=== PATIENT | female | born 1990 | race American Indian/Alaskan Native ===

== ENCOUNTER 2020-07-11 16:16 | Inpatient (IN) | payer MEDICAID ==
--- NOTE | 2020-07-11 16:36 | History and Physical Report ---
History of Present Illness Date of examination: 07/11/20 Chief complaint: Induction of Labor History of present illness: 30-year-old G1 at 38+4/7 weeks by LMP with VJ 07/21/2020 presents for induction of labor for gestational diabetes and morbid obesity as well as IUGR. care with [facility] ORDER ENTRY REPRESENTATIVE OB problem list GDM GBS positive IUGR Morbid obesity Maternal adnexal mass-ultrasound 04/24/2020 shows a simple left ovarian cyst Posterior placenta Transfer of care at 33 weeks OB labs: O+ Hemoglobin 11.1 Rubella immune Hepatitis B negative HIV negative Platelets 3 6 Cystic fibrosis carrier negative MSAFP markers negative GBS positive Past History Past Medical History: other (IUGR, maternal obesity. Gestational diabetes) Past Surgical History: other (hernia repair) - Obstetrical History Expected Date of Delivery: 07/21/20 Actual Gestation: 38 Week(s) 4 Day(s) : 1 Medications and Allergies Allergies Allergy/AdvReac Type Severity Reaction Status Date / Time No Known Allergies Allergy Verified 07/11/20 16:54 Home Medications Medication Instructions Recorded Confirmed Last Taken Type Vitamin 2 tab PO DAILY 07/11/20 07/11/20 07/11/20 History Review of Systems All systems: negative (no OB complaints) - Physical Exam Breasts: Positive: deferred Cardiovascular: Regular rate Lungs: Positive: Clear to auscultation Abdomen: Positive: normal appearance, normal bowel sounds Genitourinary (Female): Positive: normal external genitalia, normal perenium Vagina: Positive: normal moisture Anus/Rectum: Positive: normal perianal skin Extremities: Positive: normal Deep Tendon Reflex Grade: Normal +2 - Obstetrical FHR: category 1 Results All other labs normal. Assessment and Plan admission CFM GDMA1: clear liquids with Accucheck Q4 hours until patient is in active labor the Q2 hours with SSI ordered Cervidil GBS coverage at 4cm epidural/pain medication PRN Maternal/ well being reassuring overall. Ashu Grubbs MD
[2020-07-11] MEDS ORDERED: BUTORPHANOL 2 MG/1 ML INJ IV PRN (16:56)
[2020-07-11] MEDS ORDERED: fentaNYL 100 MCG/2 ML INJ IV PRN (16:56)
[2020-07-11] MEDS ORDERED: TERBUTALINE 1 MG/1 ML INJ SUB-Q PRN (16:56)
[2020-07-11] MEDS ORDERED: DINOPROSTONE 10 MG VAG SUPP VG SCH (16:56)
[2020-07-11] MEDS ORDERED: MINERAL OIL 30 ML ORAL LIQD PO PRN (16:56)
[2020-07-11] MEDS ORDERED: ePHEDrine SULFATE 50 MG/1 ML INJ IV PRN (16:56)
[2020-07-11] MEDS ORDERED: ACETAMINOPHEN 325 MG TAB PO PRN (16:56)
[2020-07-11] MEDS ORDERED: PROMETHAZINE 25 MG TAB PO PRN (16:56)
[2020-07-11] MEDS ORDERED: LIDOCAINE (2%) 20 MG/1 ML VIAL 20 ML MDV INFILTRATI ONE (16:56)
[2020-07-11] MEDS ORDERED: OXYTOCIN DRIP 30 UNITS/500 ML BAG IV SCH (17:00)
[2020-07-11] MEDS ORDERED: AMPICILLIN/NS 2 GM/100 ML 2 GM/100 ML BAG IV ONE (17:56)
[2020-07-11] MEDS ORDERED: INSULIN REGULAR, HUMAN 100 UNITS/1 ML SUB-Q SCH (18:00)
[2020-07-11 18:40] LABS: Hematocrit 33.6 % (30.3-42.9); Hemoglobin 11.4 gm/dl (10.1-14.3); Mean Corpuscular HGB Conc 34 % (30-34); Mean Corpuscular Volume 83 fl (79-97); Platelet Count 332 K/mm3 (140-440); Red Blood Count 4.03 M/mm3 (3.65-5.03); Red Cell Distribution Width 15.7 % (13.2-15.2)
[2020-07-11] MEDS: LACTATED RINGERS 1,000 ML IV SCH ×2 (18:59→19:50)
[2020-07-11] MEDS: AMPICILLIN/NS 1 GM/50 ML 1 GM/50 ML BAG IV SCH (23:21)
[2020-07-12] MEDS: LACTATED RINGERS 1,000 ML IV SCH ×2 (08:20→18:02)
--- NOTE | 2020-07-12 09:36 | Progress Note ---
Assessment and Plan - Patient Problems (1) Encounter for induction of labor Current Visit: Yes Status: Acute Plan to address problem: cervical ripening unsuccessful overnight -cervix 0.5/25/-3 -options for induction reviewed -Cooks catheter placed without difficulty after obtaining informed consent -catheter inflated to 60cc uterine/80cc vaginal, scant blood after placement -will add low dose pitocin Anticipate vaginal delivery, in setting of Cat II tracing overnight-R/B/A/I for delivery and blood transfusion reviewed. Subjective - Subjective Interval history: No complaints. Patient reports: new complaints, movement normal, no loss of fluid, no vaginal bleeding Objective - Vital Signs Vital Signs: Vital Signs - 12hr 07/11/20 07/11/20 07/11/20 21:37 21:42 21:43 Temperature Pulse Rate 105 H 104 H 114 H Blood Pressure O2 Sat by Pulse 99 99 76 L Oximetry 07/11/20 07/11/20 07/11/20 21:47 21:52 21:57 Temperature Pulse Rate 103 H 127 H 103 H Blood Pressure O2 Sat by Pulse 100 100 100 Oximetry 07/11/20 07/11/20 07/11/20 22:02 22:07 22:12 Temperature Pulse Rate 106 H 108 H 103 H Blood Pressure O2 Sat by Pulse 100 100 99 Oximetry 07/11/20 07/11/20 07/11/20 22:17 22:22 22:27 Temperature Pulse Rate 86 92 H 95 H Blood Pressure O2 Sat by Pulse 97 98 98 Oximetry 07/11/20 07/11/20 07/11/20 22:32 22:37 22:42 Temperature Pulse Rate 105 H 107 H 106 H Blood Pressure O2 Sat by Pulse 98 97 96 Oximetry 07/11/20 07/11/20 07/11/20 23:09 23:10 23:18 Temperature 98.6 F Pulse Rate 155 H Blood Pressure O2 Sat by Pulse 98 84 Oximetry 07/11/20 07/11/20 07/11/20 23:19 23:24 23:30 Temperature Pulse Rate 105 H 109 H 99 H Blood Pressure O2 Sat by Pulse 97 97 97 Oximetry 07/11/20 07/11/20 07/11/20 23:35 23:41 23:46 Temperature Pulse Rate 109 H 112 H 110 H Blood Pressure O2 Sat by Pulse 97 80 L 98 Oximetry 07/11/20 07/11/2007/12/21 23:51 23:56 00:01 Temperature Pulse Rate 102 H 106 H 92 H Blood Pressure O2 Sat by Pulse 96 97 99 Oximetry 07/12/20 07/12/20 07/12/20 00:06 00:11 00:16 Temperature Pulse Rate 99 H 101 H 95 H Blood Pressure O2 Sat by Pulse 97 97 96 Oximetry 07/12/20 07/12/20 07/12/20 00:21 00:29 00:34 Temperature Pulse Rate 125 H 104 H 102 H Blood Pressure O2 Sat by Pulse 84 98 98 Oximetry 07/12/20 07/12/20 07/12/20 00:39 00:44 00:49 Temperature Pulse Rate 89 96 H 96 H Blood Pressure O2 Sat by Pulse 97 97 96 Oximetry 07/12/20 07/12/20 07/12/20 00:54 00:59 01:03 Temperature Pulse Rate 92 H 98 H 93 H Blood Pressure 135/84 O2 Sat by Pulse 98 98 Oximetry 07/12/20 07/12/20 07/12/20 01:04 01:09 01:14 Temperature Pulse Rate 102 H 109 H 91 H Blood Pressure O2 Sat by Pulse 97 96 96 Oximetry 07/12/20 07/12/20 07/12/20 01:19 01:24 01:25 Temperature Pulse Rate 94 H 101 H 50 L Blood Pressure O2 Sat by Pulse 97 97 88 Oximetry 07/12/20 07/12/20 07/12/20 01:31 01:36 01:38 Temperature Pulse Rate 111 H 96 H 104 H Blood Pressure O2 Sat by Pulse 98 98 79 L Oximetry 07/12/20 07/12/20 07/12/20 01:41 01:46 01:51 Temperature Pulse Rate 93 H 87 92 H Blood Pressure O2 Sat by Pulse 98 98 87 Oximetry 07/12/20 07/12/20 07/12/20 02:42 02:47 02:52 Temperature Pulse Rate 110 H 121 H 92 H Blood Pressure O2 Sat by Pulse 98 97 98 Oximetry 07/12/20 07/12/20 07/12/20 02:57 03:02 03:08 Temperature Pulse Rate 110 H 93 H 90 Blood Pressure O2 Sat by Pulse 97 97 97 Oximetry 07/12/20 07/12/20 07/12/20 03:10 03:12 03:17 Temperature 99.0 F Pulse Rate 91 H 94 H Blood Pressure O2 Sat by Pulse 97 96 Oximetry 07/12/20 07/12/20 07/12/20 03:22 03:27 03:32 Temperature Pulse Rate 97 H 100 H 93 H Blood Pressure O2 Sat by Pulse 96 96 96 Oximetry 07/12/20 07/12/20 07/12/20 03:37 03:43 03:47 Temperature Pulse Rate 94 H 89 95 H Blood Pressure O2 Sat by Pulse 97 97 95 Oximetry 07/12/20 07/12/20 07/12/20 03:53 03:58 04:02 Temperature Pulse Rate 90 98 H 102 H Blood Pressure O2 Sat by Pulse 97 94 96 Oximetry 07/12/20 07/12/20 07/12/20 04:08 04:13 04:18 Temperature Pulse Rate 87 101 H 91 H Blood Pressure O2 Sat by Pulse 97 96 98 Oximetry 07/12/20 07/12/20 07/12/20 04:22 04:28 04:34 Temperature Pulse Rate 85 141 H 92 H Blood Pressure O2 Sat by Pulse 98 97 98 Oximetry 07/12/20 07/12/20 07/12/20 04:39 04:44 04:49 Temperature Pulse Rate 95 H 84 76 Blood Pressure O2 Sat by Pulse 97 95 96 Oximetry 07/12/20 07/12/20 07/12/20 04:53 04:59 05:04 Temperature Pulse Rate 83 83 89 Blood Pressure O2 Sat by Pulse 96 97 96 Oximetry 07/12/20 07/12/20 07/12/20 05:09 05:14 05:19 Temperature Pulse Rate 86 79 80 Blood Pressure O2 Sat by Pulse 97 97 97 Oximetry 07/12/20 07/12/20 07/12/20 05:24 05:29 05:34 Temperature Pulse Rate 86 88 93 H Blood Pressure O2 Sat by Pulse 96 96 96 Oximetry 07/12/20 07/12/20 07/12/20 05:39 05:44 05:48 Temperature Pulse Rate 86 79 78 Blood Pressure O2 Sat by Pulse 96 97 87 Oximetry 07/12/20 07/12/20 07/12/20 05:49 05:54 05:59 Temperature Pulse Rate 79 80 86 Blood Pressure O2 Sat by Pulse 98 99 95 Oximetry 07/12/20 07/12/20 07/12/20 06:04 06:09 06:14 Temperature Pulse Rate 95 H 85 80 Blood Pressure O2 Sat by Pulse 99 97 97 Oximetry 07/12/20 07/12/20 07/12/20 06:19 06:24 06:29 Temperature Pulse Rate 87 98 H 101 H Blood Pressure O2 Sat by Pulse 97 97 97 Oximetry 07/12/20 07/12/20 07/12/20 06:39 06:44 06:49 Temperature Pulse Rate 101 H 86 86 Blood Pressure O2 Sat by Pulse 98 98 96 Oximetry 07/12/20 07/12/20 07/12/20 06:54 06:59 07:04 Temperature Pulse Rate 84 78 77 Blood Pressure O2 Sat by Pulse 97 97 96 Oximetry 07/12/20 07/12/20 07/12/20 07:09 07:14 07:19 Temperature Pulse Rate 86 80 88 Blood Pressure O2 Sat by Pulse 98 97 98 Oximetry 07/12/20 07/12/20 07/12/20 07:24 07:29 07:34 Temperature Pulse Rate 79 86 96 H Blood Pressure O2 Sat by Pulse 97 96 95 Oximetry 07/12/20 07/12/20 07/12/20 07:39 07:57 08:03 Temperature Pulse Rate 81 91 H 133 H Blood Pressure O2 Sat by Pulse 97 97 97 Oximetry 07/12/20 07/12/20 07/12/20 08:08 08:13 08:17 Temperature Pulse Rate 102 H 95 H 91 H Blood Pressure O2 Sat by Pulse 98 97 97 Oximetry 07/12/20 07/12/20 07/12/20 08:23 08:28 08:37 Temperature 98.0 F Pulse Rate 91 H 117 H Blood Pressure O2 Sat by Pulse 98 98 Oximetry 07/12/20 07/12/20 07/12/20 08:47 08:52 08:57 Temperature Pulse Rate 61 98 H 105 H Blood Pressure O2 Sat by Pulse 96 98 98 Oximetry 07/12/20 07/12/20 07/12/20 09:02 09:07 09:12 Temperature Pulse Rate 93 H 93 H 98 H Blood Pressure O2 Sat by Pulse 98 99 97 Oximetry 07/12/20 07/12/20 07/12/20 09:17 09:21 09:22 Temperature Pulse Rate 103 H 83 83 Blood Pressure O2 Sat by Pulse 98 83 L 83 L Oximetry 07/12/20 09:27 Temperature Pulse Rate 86 Blood Pressure O2 Sat by Pulse 98 Oximetry - Exam Cardiovascular: Regular rate Abdomen: Present: normal appearance, other (morbidly obese) Uterus: Present: normal FHR: category 1 Uterine Contraction Monitor Mode: External Uterine Contraction Pattern: Absent - Labs Labs: Abnormal Labs 07/11/20 07/11/20 07/12/20 18:00 18:22 04:10 RDW 15.7 H POC Glucose 160 H 116 H Laboratory Results - last 24 hr 07/11/20 07/11/20 07/11/20 18:00 18:00 18:22 WBC 9.7 RBC 4.03 Hgb 11.4 Hct 33.6 MCV 83 MCH 28 MCHC 34 RDW 15.7 H Plt Count 332 POC Glucose 160 H Blood Type O POSITIVE Antibody Screen Negative 07/12/20 04:10 WBC RBC Hgb Hct MCV MCH MCHC RDW Plt Count POC Glucose 116 H Blood Type Antibody Screen
[2020-07-12] MEDS: BUTORPHANOL 2 MG/1 ML INJ IV PRN ×2 (11:54→20:32)
[2020-07-12] MEDS: OXYTOCIN DRIP 30 UNITS/500 ML BAG IV SCH ×2 (11:56→15:05)
[2020-07-13] MEDS: AMPICILLIN/NS 1 GM/50 ML 1 GM/50 ML BAG IV SCH ×2 (02:52→06:08)
[2020-07-13] MEDS ORDERED: BICITRA ORAL LIQD 30ML ONE (08:33)
[2020-07-13] MEDS ORDERED: METOCLOPRAMIDE 10 MG/2 ML INJ ONE (08:34)
[2020-07-13] MEDS ORDERED: FAMOTIDINE 20 MG/2 ML INJ IV ONE (08:34)
[2020-07-13] MEDS ORDERED: ceFAZolin/Water 2 GM/20 ML 2 GM/20 ML SYRINGE IV ONE (08:34)
[2020-07-13] MEDS: LACTATED RINGERS 1,000 ML IV SCH (09:46)
[2020-07-13] MEDS ORDERED: ePHEDrine SULFATE 50 MG/1 ML INJ IV PRN (09:58)
[2020-07-13] MEDS ORDERED: NALOXONE 2 MG/2 ML INJ IV PRN (09:58)
[2020-07-13] MEDS ORDERED: fentaNYL-BUPIV 2 MCG/ML-0.125% 200 MCG/100 ML BAG EPIDURAL SCH (10:00)
--- NOTE | 2020-07-13 10:00 | Anesthesia Day of Surgery ---
Anesthesia Day of Surgery - Day of Surgery Patient Examined: Yes Patient H&P Reviewed: Yes Patient is NPO: Yes Beta Blockers: No Cardiac Clearance: No Pulmonary Clearance: No Darrian's Test: N/A
--- NOTE | 2020-07-13 10:00 | Anesthesia Consultation ---
Anesthesia Consult and Med Hx Date of service: 07/13/20 - Airway Anesthetic Teeth Evaluation: Poor ROM Head & Neck: Adequate Mental/Hyoid Distance: Adequate Mallampati Class: Class III Intubation Access Assessment: Possibly Difficult - Pulmonary Exam CTA: Yes - Cardiac Exam Cardiac Exam: RRR - Pre-Operative Health Status ASA Pre-Surgery Classification: ASA3 Proposed Anesthetic Plan: Epidural - Pulmonary Hx Smoking: No Hx Asthma: No Hx Respiratory Symptoms: No SOB: No COPD: No Home Oxygen Therapy: No Hx Pneumonia: No Hx Sleep Apnea: No - Cardiovascular System Hx Hypertension: No Hx Coronary Artery Disease: No Hx Heart Attack/AMI: No Hx Angina: No Hx Percutaneous Transluminal Coronary Angioplasty (PTCA): No Hx Cardia Arrhythmia: No Hx Pacemaker: No Hx Internal Defibrillator: No Hx Valvular Heart Disease: No Hx Heart Murmur: No Hx Peripheral Vascular Disease: No - Central Nervous System Hx Neuromuscular Disorder: No Hx Seizures: No CVA: No Hx Back Pain: No Hx Psychiatric Problems: No - Gastrointestinal Hx Ulcer: No Hx Gastroesophageal Reflux Disease: Yes - Endocrine Hx Renal Disease: No Hx End Stage Renal Disease: No Hx Cirrhosis: No Hx Liver Disease: No Hx Insulin Dependent Diabetes: No Hx Non-Insulin Dependent Diabetes: Yes Hx Thyroid Disease: No Hx Hypothyroidism: No Hx Hyperthyroidism: No - Hematic Hx Anemia: No Hx Sickle Cell Disease: No - Other Systems Hx Alcohol Use: No Hx Substance Use: No Hx Cancer: No Hx Obesity: Yes
[2020-07-13] MEDS ORDERED: CARBOPROST TROMETHAMINE 250 MCG/1 ML INJ IM ONE (12:57)
[2020-07-13] MEDS ORDERED: METHYLERGONOVINE MALEATE 0.2 MG/ML VIAL IM ONE (12:58)
[2020-07-13] MEDS ORDERED: WITCH HAZEL/ GLYCERIN PAD TP PRN (13:08)
[2020-07-13] MEDS ORDERED: LANOLIN/ZINC/DIMETHICONE (LANSINOH) 7 GM TP PRN (13:08)
[2020-07-13] MEDS ORDERED: NALOXONE 0.4 MG/1 ML INJ IV PRN ×2 (13:08→16:08)
--- NOTE | 2020-07-13 13:08 | Progress Note ---
Assessment and Plan - Patient Problems (1) Intrauterine growth restriction affecting care of mother Current Visit: Yes Status: Acute Plan to address problem: Take patient back for a primary delivery Risk and benefits have been explained to the patient (2) Morbid obesity with BMI of 60.0-69.9, adult Current Visit: Yes Status: Acute Subjective - Subjective Date of service: 07/13/20 Interval history: 30y/o @ 38+6 weeks admitted for induction for morbid obesity and IUGR. Int rapartum course has been complicated by nonreassuring heart rate tracing. The patient is a cervical exam remains at 4 cm. We will proceed with a primary delivery. Patient reports: new complaints, movement normal, no loss of fluid, no vaginal bleeding Objective - Vital Signs Vital Signs: Vital Signs - 12hr 07/13/20 07/13/20 07/13/20 01:10 01:15 01:20 Temperature Pulse Rate 70 71 77 Respiratory Rate Blood Pressure O2 Sat by Pulse 95 95 94 Oximetry 07/13/20 07/13/20 07/13/20 01:25 01:30 01:35 Temperature Pulse Rate 79 76 92 H Respiratory Rate Blood Pressure O2 Sat by Pulse 96 95 97 Oximetry 07/13/20 07/13/20 07/13/20 01:43 01:48 01:53 Temperature Pulse Rate 73 71 66 Respiratory Rate Blood Pressure O2 Sat by Pulse 96 96 91 Oximetry 07/13/20 07/13/20 07/13/20 01:58 02:03 02:08 Temperature Pulse Rate 75 71 81 Respiratory Rate Blood Pressure O2 Sat by Pulse 96 97 98 Oximetry 07/13/20 07/13/20 07/13/20 02:12 02:13 02:18 Temperature Pulse Rate 72 71 74 Respiratory Rate Blood Pressure 120/57 O2 Sat by Pulse 97 96 Oximetry 07/13/20 07/13/20 07/13/20 02:23 02:26 02:28 Temperature Pulse Rate 78 82 84 Respiratory Rate Blood Pressure O2 Sat by Pulse 95 89 99 Oximetry 07/13/20 07/13/20 07/13/20 02:33 03:28 05:08 Temperature Pulse Rate 75 71 Respiratory 18 Rate Blood Pressure O2 Sat by Pulse 99 97 Oximetry 07/13/20 07/13/20 07/13/20 05:13 05:18 05:23 Temperature Pulse Rate 80 77 71 Respiratory Rate Blood Pressure O2 Sat by Pulse 96 98 97 Oximetry 07/13/20 07/13/20 07/13/20 05:28 05:33 05:38 Temperature Pulse Rate 71 72 66 Respiratory Rate Blood Pressure O2 Sat by Pulse 97 97 97 Oximetry 07/13/20 07/13/20 07/13/20 05:43 05:48 05:53 Temperature Pulse Rate 71 79 71 Respiratory Rate Blood Pressure O2 Sat by Pulse 97 96 97 Oximetry 07/13/20 07/13/20 07/13/20 05:56 05:58 08:48 Temperature 97.9 F Pulse Rate 72 74 Respiratory Rate Blood Pressure O2 Sat by Pulse 96 99 Oximetry 07/13/20 07/13/20 07/13/20 08:53 08:58 09:40 Temperature Pulse Rate 71 69 87 Respiratory Rate Blood Pressure 130/73 O2 Sat by Pulse 100 100 Oximetry 07/13/20 07/13/20 07/13/20 09:42 09:44 09:45 Temperature Pulse Rate 81 98 H 110 H Respiratory Rate Blood Pressure 128/72 129/58 O2 Sat by Pulse 95 Oximetry 07/13/20 07/13/20 07/13/20 09:47 09:49 09:51 Temperature Pulse Rate 107 H 129 H 111 H Respiratory Rate Blood Pressure 128/58 129/65 127/66 O2 Sat by Pulse 95 Oximetry 07/13/20 07/13/20 07/13/20 09:52 09:53 09:55 Temperature Pulse Rate 113 H 116 H 122 H Respiratory Rate Blood Pressure 123/70 126/73 O2 Sat by Pulse 94 Oximetry 07/13/20 07/13/20 07/13/20 09:57 10:02 10:07 Temperature Pulse Rate 119 H 117 H 108 H Respiratory Rate Blood Pressure O2 Sat by Pulse 94 93 94 Oximetry 07/13/20 07/13/20 07/13/20 10:10 10:12 10:17 Temperature Pulse Rate 122 H 105 H 92 H Respiratory Rate Blood Pressure 125/78 O2 Sat by Pulse 95 95 Oximetry 07/13/20 07/13/20 07/13/20 10:22 10:27 10:32 Temperature Pulse Rate 108 H 80 102 H Respiratory Rate Blood Pressure 130/81 O2 Sat by Pulse 94 95 95 Oximetry 07/13/20 07/13/20 07/13/20 10:37 10:41 10:42 Temperature Pulse Rate 84 83 82 Respiratory Rate Blood Pressure 131/73 O2 Sat by Pulse 95 94 Oximetry 07/13/20 07/13/20 07/13/20 10:47 10:52 10:55 Temperature Pulse Rate 89 91 H 94 H Respiratory Rate Blood Pressure 125/68 O2 Sat by Pulse 95 95 Oximetry 07/13/20 07/13/20 07/13/20 10:57 11:02 11:07 Temperature Pulse Rate 88 92 H 101 H Respiratory Rate Blood Pressure O2 Sat by Pulse 96 95 98 Oximetry 07/13/20 07/13/20 07/13/20 11:10 11:12 11:17 Temperature Pulse Rate 76 72 94 H Respiratory Rate Blood Pressure 125/68 O2 Sat by Pulse 94 97 Oximetry 07/13/20 07/13/20 07/13/20 11:22 11:26 11:27 Temperature Pulse Rate 78 83 83 Respiratory Rate Blood Pressure 114/57 O2 Sat by Pulse 97 93 Oximetry 07/13/20 07/13/20 07/13/20 11:32 11:37 11:41 Temperature Pulse Rate 81 88 75 Respiratory Rate Blood Pressure 133/68 O2 Sat by Pulse 94 98 Oximetry 07/13/20 07/13/20 07/13/20 11:42 11:47 11:52 Temperature Pulse Rate 75 79 71 Respiratory Rate Blood Pressure O2 Sat by Pulse 96 94 92 Oximetry 07/13/20 07/13/20 07/13/20 11:56 11:57 12:02 Temperature Pulse Rate 86 79 71 Respiratory Rate Blood Pressure 137/64 O2 Sat by Pulse 97 93 Oximetry 07/13/20 07/13/20 07/13/20 12:07 12:11 12:12 Temperature Pulse Rate 79 78 78 Respiratory Rate Blood Pressure 132/76 O2 Sat by Pulse 93 94 Oximetry 07/13/20 07/13/20 07/13/20 12:17 12:21 12:22 Temperature Pulse Rate 75 78 82 Respiratory Rate Blood Pressure O2 Sat by Pulse 95 89 93 Oximetry 07/13/20 07/13/20 07/13/20 12:25 12:27 12:32 Temperature Pulse Rate 81 75 77 Respiratory Rate Blood Pressure 126/74 O2 Sat by Pulse 93 95 Oximetry 07/13/20 07/13/20 07/13/20 12:37 12:40 12:42 Temperature Pulse Rate 79 82 72 Respiratory Rate Blood Pressure 126/71 O2 Sat by Pulse 95 94 Oximetry 07/13/20 07/13/20 07/13/20 12:47 12:52 12:55 Temperature Pulse Rate 74 83 79 Respiratory Rate Blood Pressure 124/73 O2 Sat by Pulse 93 95 Oximetry 07/13/20 12:57 Temperature Pulse Rate 79 Respiratory Rate Blood Pressure O2 Sat by Pulse 95 Oximetry - Labs Labs: Abnormal Labs 07/11/20 07/11/20 07/12/20 18:00 18:22 04:10 RDW 15.7 H POC Glucose 160 H 116 H 07/13/20 06:27 RDW POC Glucose 106 H Laboratory Results - last 24 hr 07/12/20 07/13/20 07/13/20 23:17 03:24 06:27 POC Glucose 90 97 106 H
[2020-07-13] MEDS ORDERED: IBUPROFEN 600 MG TAB PO PRN (13:09)
[2020-07-13] MEDS ORDERED: KETOROLAC 30 MG/1 ML INJ IV PRN (13:09)
[2020-07-13] MEDS ORDERED: MORPHINE 4 MG/1 ML INJ IV PRN (13:09)
[2020-07-13] MEDS ORDERED: ONDANSETRON 4 MG/2 ML INJ ONE ×2 (13:12→14:00)
--- NOTE | 2020-07-13 13:13 | Procedure Note ---
OB Delivery Note - Delivery Date of Delivery: 07/13/20 Surgeon: HARRIS FAJARDO Estimated blood loss: other (700ml) - Section Preop diagnosis: nonreassuring FHR tracing Postop diagnosis: same section procedure: section, primary low transverse Disposition: PACU Complications: none - A at 1 minute: 8 at 5 minutes: 9 Infant Gender: Male (Weight 6 pounds 8 ounces)
[2020-07-13] MEDS ORDERED: SODIUM BICARB 8.4% 50 MEQ/50 ML VIAL IV ONE (13:35)
[2020-07-13] MEDS ORDERED: LIDOCAINE 2%/EPINEPHRINE 1:200,000 VIAL (20 ML) INFILTRATI ONE (13:37)
[2020-07-13] MEDS ORDERED: SODIUM CHLORIDE 0.9% IRR 1,500 ML BOTTLE IR ONE (13:40)
[2020-07-13] MEDS ORDERED: WATER FOR IRRIG STERILE 1,500 ML BOTTLE IR ONE (13:40)
[2020-07-13] MEDS ORDERED: ceFAZolin 1 GM VIAL ONE (13:43)
[2020-07-13] MEDS ORDERED: PHENYLEPHRINE/NS 1,000 MCG/10 ML SYRINGE (OR USE) IV ONE (13:56)
[2020-07-13] MEDS ORDERED: D5W/LACTATED RINGERS 1,000 ML IV SCH (14:00)
[2020-07-13] MEDS ORDERED: OXYTOCIN DRIP 30 UNITS/500 ML BAG IV SCH (14:00)
[2020-07-13] MEDS ORDERED: OXYTOCIN 10 UNIT/1 ML INJ ONE (14:03)
[2020-07-13] MEDS ORDERED: KETOROLAC 30 MG/1 ML INJ ONE (14:11)
[2020-07-13] MEDS ORDERED: dexAMETHasone 20 MG/5 ML VIAL ONE (14:23)
[2020-07-13] MEDS ORDERED: BUPIVACAINE/PF (0.5%) 5 MG/1 ML 30 ML VIAL INFILTRATI ONE (14:23)
[2020-07-13] MEDS ORDERED: SODIUM CHLORIDE 0.9% 100 ML ONE (14:25)
--- NOTE | 2020-07-13 16:01 | Progress Note ---
Labor Epidural - Labor Epidural Start Time: 09:27 Stop Time: :40 Performed by:: JESUS PAGAN Procedure: Patient is requesting a laboring epidural for laboring pain. Patient IDed, H&P reviewed, all questions and concerns were answered, and consent was signed. Timeout was performed at bedside. Patient in sitting position. Sterile prep and drape was performed. [3] ml of 1% lidocaine skin wheal at L[3]- L [4]. 18- gauge Tuohy epidural needle was advanced to loss of resistance with saline technique 9.5cm. Negative CSF negative blood. Epidural catheter advanced to [15] centimeters. [NEGATIVE] Aspiration [NEGATIVE] test dose. Sterile dressing applied. Patient tolerated procedure.
--- NOTE | 2020-07-13 16:02 | Progress Note ---
Objective - Constitutional Vitals: Vital Signs - 12hr 07/13/20 07/13/20 07/13/20 05:08 05:13 05:18 Temperature Pulse Rate 71 80 77 Blood Pressure O2 Sat by Pulse 97 96 98 Oximetry 07/13/20 07/13/20 07/13/20 05:23 05:28 05:33 Temperature Pulse Rate 71 71 72 Blood Pressure O2 Sat by Pulse 97 97 97 Oximetry 07/13/20 07/13/20 07/13/20 05:38 05:43 05:48 Temperature Pulse Rate 66 71 79 Blood Pressure O2 Sat by Pulse 97 97 96 Oximetry 07/13/20 07/13/20 07/13/20 05:53 05:56 05:58 Temperature 97.9 F Pulse Rate 71 72 Blood Pressure O2 Sat by Pulse 97 96 Oximetry 07/13/20 07/13/20 07/13/20 08:48 08:53 08:58 Temperature Pulse Rate 74 71 69 Blood Pressure O2 Sat by Pulse 99 100 100 Oximetry 07/13/20 07/13/20 07/13/20 09:40 09:42 09:44 Temperature Pulse Rate 87 81 98 H Blood Pressure 130/73 128/72 O2 Sat by Pulse 95 Oximetry 07/13/20 07/13/20 07/13/20 09:45 09:47 09:49 Temperature Pulse Rate 110 H 107 H 129 H Blood Pressure 129/58 128/58 129/65 O2 Sat by Pulse 95 Oximetry 07/13/20 07/13/20 07/13/20 09:51 09:52 09:53 Temperature Pulse Rate 111 H 113 H 116 H Blood Pressure 127/66 123/70 O2 Sat by Pulse 94 Oximetry 07/13/20 07/13/20 07/13/20 09:55 09:57 10:02 Temperature Pulse Rate 122 H 119 H 117 H Blood Pressure 126/73 O2 Sat by Pulse 94 93 Oximetry 07/13/20 07/13/20 07/13/20 10:07 10:10 10:12 Temperature Pulse Rate 108 H 122 H 105 H Blood Pressure 125/78 O2 Sat by Pulse 94 95 Oximetry 07/13/20 07/13/20 07/13/20 10:17 10:22 10:27 Temperature Pulse Rate 92 H 108 H 80 Blood Pressure 130/81 O2 Sat by Pulse 95 94 95 Oximetry 07/13/20 07/13/20 07/13/20 10:32 10:37 10:41 Temperature Pulse Rate 102 H 84 83 Blood Pressure 131/73 O2 Sat by Pulse 95 95 Oximetry 07/13/20 07/13/20 07/13/20 10:42 10:47 10:52 Temperature Pulse Rate 82 89 91 H Blood Pressure O2 Sat by Pulse 94 95 95 Oximetry 07/13/20 07/13/20 07/13/20 10:55 10:57 11:02 Temperature Pulse Rate 94 H 88 92 H Blood Pressure 125/68 O2 Sat by Pulse 96 95 Oximetry 07/13/20 07/13/20 07/13/20 11:07 11:10 11:12 Temperature Pulse Rate 101 H 76 72 Blood Pressure 125/68 O2 Sat by Pulse 98 94 Oximetry 07/13/20 07/13/20 07/13/20 11:17 11:22 11:26 Temperature Pulse Rate 94 H 78 83 Blood Pressure 114/57 O2 Sat by Pulse 97 97 Oximetry 07/13/20 07/13/20 07/13/20 11:27 11:32 11:37 Temperature Pulse Rate 83 81 88 Blood Pressure O2 Sat by Pulse 93 94 98 Oximetry 07/13/20 07/13/20 07/13/20 11:41 11:42 11:47 Temperature Pulse Rate 75 75 79 Blood Pressure 133/68 O2 Sat by Pulse 96 94 Oximetry 07/13/20 07/13/20 07/13/20 11:52 11:56 11:57 Temperature Pulse Rate 71 86 79 Blood Pressure 137/64 O2 Sat by Pulse 92 97 Oximetry 07/13/20 07/13/20 07/13/20 12:02 12:07 12:11 Temperature Pulse Rate 71 79 78 Blood Pressure 132/76 O2 Sat by Pulse 93 93 Oximetry 07/13/20 07/13/20 07/13/20 12:12 12:17 12:21 Temperature Pulse Rate 78 75 78 Blood Pressure O2 Sat by Pulse 94 95 89 Oximetry 07/13/20 07/13/20 07/13/20 12:22 12:25 12:27 Temperature Pulse Rate 82 81 75 Blood Pressure 126/74 O2 Sat by Pulse 93 93 Oximetry 07/13/20 07/13/20 07/13/20 12:32 12:37 12:40 Temperature Pulse Rate 77 79 82 Blood Pressure 126/71 O2 Sat by Pulse 95 95 Oximetry 07/13/20 07/13/20 07/13/20 12:42 12:47 12:52 Temperature Pulse Rate 72 74 83 Blood Pressure O2 Sat by Pulse 94 93 95 Oximetry 07/13/20 07/13/20 12:55 12:57 Temperature Pulse Rate 79 79 Blood Pressure 124/73 O2 Sat by Pulse 95 Oximetry - Labs CBC & Chem 7: 07/11/20 18:00 Labs: Abnormal lab results 07/13/20 Range/Units 06:27 POC Glucose 106 H (70-105) mg/dL Regional Anesthesia Block - Regional Anesthesia Block Start Time: 14:58 Stop Time: 15:20 Performed By:: JESUS PAGAN Procedure: Patient consented for TAP block for post surgical pain management. Patient identified, monitors placed, and time out performed. TAP identified bilaterally via ultrasound. Skin prepped bilaterally with [chlorhexidine] and [22g stimu plex] needle advanced to the TAP. [Marcaine 0.22% 35ml] injected under ultrasound guidance on the [left] side. [Marcaine 0.22% 35ml] injected under ultrasound guidance on the [right] side. Negative aspiration every 5mL, No change in heart rate or rhythm. Patient tolerated the procedure well. No ap parent complications seen.
[2020-07-13] MEDS ORDERED: ONDANSETRON 4 MG/2 ML INJ IV PRN (16:08)
[2020-07-13] MEDS ORDERED: HYDROmorphone 1 MG/1 ML INJ IV PRN (16:08)
[2020-07-13] MEDS ORDERED: SODIUM CHLORIDE 0.9% 500 ML 500 ML ONE (18:56)
[2020-07-13] MEDS ORDERED: SODIUM CHLORIDE 0.9% 500 ML 500 ML IV ONE (19:58)
[2020-07-13] MEDS: HEPARIN 5,000 UNIT/1 ML VIAL SUB-Q SCH (22:42)
--- NOTE | 2020-07-13 23:08 | Post Anesthesia Evaluation ---
- Post Anesthesia Evaluation Patient Participated: Yes Airway Patent: Yes Stable Respiratory Function: Yes Nausea/Vomiting: Yes Temp > 96.8F: No Pain Manageable: Yes Adequeate Hydration: Yes Anesthesia Complications: No Block Receding Appropriately: Yes Patient on Ventilator: No
[2020-07-14 01:52] LABS: Hematocrit 32.6 % (30.3-42.9); Hemoglobin 10.6 gm/dl (10.1-14.3)
[2020-07-14] MEDS: oxyCODONE /ACETAMINOPHEN 5-325MG TAB PO PRN ×3 (03:33→18:19)
--- NOTE | 2020-07-14 07:41 | Operative Report ---
Operative Report Operative Report: Date of surgery: July 13, 2020 Preoperative diagnosis: at 38+6 weeks; morbid obesity; nonreassuring heart rate tracing; gestational diabetes Postoperative diagnosis: Same as above Procedure: Primary low transverse delivery Surgeon: Juliette Ahumada M.D. Anesthesia: Regional Estimated blood loss: 700 mL IV fluids: 1000 mL Urine output: 50 mL Findings: Liveborn male infant with Apgars of 8 and 9 weight 6 pounds 8 ounces Indications: 30-year-old G1, P0 at 38+6 weeks who was admitted for induction of labor secondary to gestational diabetes and morbid obesity. The patient's intrapartum course was complicated by nonreassuring heart rate tracing. Procedure: The patient was taken to the operating room and given regional anesthesia without complication. She was prepped and draped in a normal sterile fashion. A Pfannenstiel skin incision was made down to layer the fascia which was nicked in the midline extended laterally with the Bovie cautery. The superior aspect of the rectus fascia was grasped with Ramos clamps x2 and the rectus muscles off sharply. This was done in inferior fashion as well. The rectus muscle midline and peritoneum entered bluntly. An Abimael retractor was then inserted. A bladder blade was placed. The vesicouterine peritoneum was then entered sharply with Metzenbaum scissors. A bladder flap was created digitally. A low transverse uterine incision was then made and extended digitally. There was clear fluid upon entry into the uterine cavity. The head was delivered through the incision with fundal pressure. A nuchal cord x1 was manually reduced. The cord was clamped and cut x2 and was passed off to pediatrics. The placenta was then manually extracted. The uterus was then exteriorized and cleared of clots and debris. The uterine incision was then closed in a running locked fashion with 0 Vicryl additional imbricating stitch was applied for 2 layer closure. The posterior cul-de-sac was then copiously irrigated. The uterus was replaced back into the abdomen and pelvis were the gutters were then irrigated. The Abimael retractor was then removed. The peritoneum was then reapproximated with 3-0 Vicryl incorporating the rectus muscle. The fascia was then closed with 0 Vicryl in a running fashion. The subcutaneous adipose tissue was reapproximated with 3-0 Vicryl in a running fashion. The skin was then reapproximated with 3-0 Monocryl on a Silvano needle subcuticular fashion. Steri-Strips to place across the incision and a Crede procedures performed at the end of the surgery. A pressure dressing was applied to the incision. The surgery productive of a liveborn male with Apgars of 8 and 9 weight 6 pounds 8 ounces. The patient was taken to the recovery room in stable condition. All sponge laps and needle counts correct x2.
--- NOTE | 2020-07-14 08:24 | Progress Note ---
Assessment and Plan - Patient Problems (1) Intrauterine growth restriction affecting care of mother Current Visit: Yes Status: Acute Plan to address problem: patient doing well routine post op care (2) Morbid obesity with BMI of 60.0-69.9, adult Current Visit: Yes Status: Acute Subjective - Subjective Date of service: 07/14/20 Interval history: Patient reports feeling well. She has voided and tolerated regular diet Patient reports: appetite normal, voiding normally, pain well controlled, flatus, bowel movement [place]: doing well Objective - Vital Signs Latest vital signs: Vital Signs Temp Pulse Resp BP BP Pulse Ox 07/14/20 02:19 98.2 F 73 20 143/85 98 07/13/20 21:33 98.3 F 61 18 138/85 96 07/13/20 17:57 98.7 F 76 18 125/76 99 07/13/20 16:00 64 16 110/39 96 07/13/20 15:45 66 17 102/51 96 07/13/20 15:30 67 15 94/36 95 07/13/20 15:15 62 13 93/39 95 07/13/20 15:00 68 15 96/40 97 07/13/20 14:55 74 16 94/47 96 07/13/20 14:50 97.7 F 67 11 L 94/44 98 07/13/20 12:57 79 95 07/13/20 12:55 79 124/73 07/13/20 12:52 83 95 07/13/20 12:47 74 93 07/13/20 12:42 72 94 07/13/20 12:40 82 126/71 07/13/20 12:37 79 95 07/13/20 12:32 77 95 07/13/20 12:27 75 93 07/13/20 12:25 81 126/74 07/13/20 12:22 82 93 07/13/20 12:21 78 89 07/13/20 12:17 75 95 07/13/20 12:12 78 94 07/13/20 12:11 78 132/76 07/13/20 12:07 79 93 07/13/20 12:02 71 93 07/13/20 11:57 79 97 07/13/20 11:56 86 137/64 07/13/20 11:52 71 92 07/13/20 11:47 79 94 07/13/20 11:42 75 96 07/13/20 11:41 75 133/68 07/13/20 11:37 88 98 07/13/20 11:32 81 94 07/13/20 11:27 83 93 07/13/20 11:26 83 114/57 07/13/20 11:22 78 97 07/13/20 11:17 94 H 97 07/13/20 11:12 72 94 07/13/20 11:10 76 125/68 07/13/20 11:07 101 H 98 07/13/20 11:02 92 H 95 07/13/20 10:57 88 96 07/13/20 10:55 94 H 125/68 07/13/20 10:52 91 H 95 07/13/20 10:47 89 95 07/13/20 10:42 82 94 07/13/20 10:41 83 131/73 07/13/20 10:37 84 95 07/13/20 10:32 102 H 95 07/13/20 10:27 80 130/81 95 07/13/20 10:22 108 H 94 07/13/20 10:17 92 H 95 07/13/20 10:12 105 H 95 07/13/20 10:10 122 H 125/78 07/13/20 10:07 108 H 94 07/13/20 10:02 117 H 93 07/13/20 09:57 119 H 94 07/13/20 09:55 122 H 126/73 07/13/20 09:53 116 H 123/70 07/13/20 09:52 113 H 94 07/13/20 09:51 111 H 127/66 07/13/20 09:49 129 H 129/65 07/13/20 09:47 107 H 128/58 95 07/13/20 09:45 110 H 129/58 07/13/20 09:44 98 H 128/72 07/13/20 09:42 81 95 07/13/20 09:40 87 130/73 07/13/20 08:58 69 100 07/13/20 08:53 71 100 07/13/20 08:48 74 99 Intake and Output 07/13/20 07/14/20 07/14/20 22:59 06:59 14:59 Intake Total 700 Output Total 450 900 Balance 250 -900 Intake: IV 700 Output: Urine 450 900 Uretheral (Turner) 375 Void 900 Other: Total, Output Amount 700 Estimated Blood Loss 700 - Exam Incision: Present: dressed - Labs Labs: Abnormal lab results 07/13/20 Range/Units 17:45 POC Glucose 114 H (70-105) mg/dL
[2020-07-14] MEDS: HEPARIN 5,000 UNIT/1 ML VIAL SUB-Q SCH ×2 (10:26→22:11)
[2020-07-15] MEDS: oxyCODONE /ACETAMINOPHEN 5-325MG TAB PO PRN ×2 (05:50→13:10)
--- NOTE | 2020-07-15 10:54 | Progress Note ---
Assessment and Plan - Patient Problems (1) Intrauterine growth restriction affecting care of mother Current Visit: Yes Status: Acute Plan to address problem: Patient doing well discharge home (2) Morbid obesity with BMI of 60.0-69.9, adult Current Visit: Yes Status: Acute Subjective - Subjective Date of service: 07/15/20 Interval history: Patient reports feeling well. She has voided and tolerated regular diet. Having minor cramping Patient reports: appetite normal, voiding normally, pain well controlled, flatus [place]: doing well Objective - Vital Signs Latest vital signs: Vital Signs Temp Pulse Resp BP BP Pulse Ox 07/15/20 08:20 97.5 F L 76 18 110/64 98 07/15/20 06:50 18 07/15/20 05:50 18 07/15/20 01:12 98.0 F 94 H 20 131/78 95 07/14/20 19:19 18 07/14/20 16:20 98.4 F 77 18 131/85 100 07/14/20 12:25 98.6 F 82 18 136/80 98 Intake and Output 07/14/20 07/15/20 07/15/20 22:59 06:59 14:59 Intake Total 240 Output Total 200 Balance -200 240 Intake: Oral 240 Output: Urine 200 Void 200 Other: Total, Intake Amount 240 Total, Output Amount 200
--- NOTE | 2020-07-15 10:56 | Discharge Summary ---
Providers - Providers Date of Admission: 07/12/20 09:37 Date of discharge: 07/15/20 Attending physician: HARRIS FAJARDO Primary care physician: HARRIS FAJARDO Hospitalization Reason for admission: induction of labor Delivery: Procedure: section, primary low transverse Discharge diagnosis: other (IUGR) Hospital course: Patient admitted for IOL for gestational diabetes, morbid obesity. Intrapartum complicated by non-reassuring tracing. Patient taken for primary . Postop uncomplicated Condition at discharge: Good Disposition: DC-01 TO HOME OR SELFCARE - Discharge Diagnoses (1) Intrauterine growth restriction affecting care of mother Status: Acute (2) Morbid obesity with BMI of 60.0-69.9, adult Status: Acute Plan - Discharge Medications Prescriptions: Ibuprofen [Motrin] 800 mg PO Q8HR PRN #60 tablet PRN Reason: Pain , Severe (7-10) oxyCODONE /ACETAMINOPHEN [Percocet 5/325] 1 tab PO Q6HR PRN #30 tablet PRN Reason: Pain - Provider Discharge Summary Activity: no sex for 6 weeks, no heavy lifting 4 weeks, no strenuous exercise Diet: routine Instructions: routine Additional instructions: [] Smoking cessation referral if applicable(refer to patient education folder for contact #) [] Refer to [facility] Booklet Call your doctor immediately for: * Fever > 100.5 * Heavy vaginal bleeding ( >1 pad per hour) * Severe persistent headache * Shortness of breath * Reddened, hot, painful area to leg or breast * Drainage or odor from incision. * Keep incision clean and dry at all times and follow doctor's instructions regarding bathing/showering schedule postop visit in 2 weeks - Follow up plan
[2020-07-15] MEDS: HEPARIN 5,000 UNIT/1 ML VIAL SUB-Q SCH (11:27)
[2020-07-15 14:22] VITALS: BP 138/80
== END 2020-07-15 18:45 | disposition home or self-care (01) | DRG 765 ==
LOC: TRG 16:16 → LD 16:16 → TRG 07-12 09:37 → LD 07-12 09:37 → OB 07-13 17:14
PROVIDERS: ADMIT Obstetrics & Gynecology; ATTEND Obstetrics & Gynecology
PROC: 3E0P7VZ Introduction of Hormone into Female Reproductive, Via Natural or Artificial Opening (ICD-10-PCS; principal; 2020-07-14)
PROC: 10D00Z1 Extraction of Products of Conception, Low, Open Approach (ICD-10-PCS; 2020-07-14)
PROC: 0U7C7ZZ Dilation of Cervix, Via Natural or Artificial Opening (ICD-10-PCS; 2020-07-14)
DX: O76 Abnormality in fetal heart rate and rhythm complicating labor and delivery (principal); O36.5930 Maternal care for other known or suspected poor fetal growth, third trimester, not applicable or unspecified; O24.429 Gestational diabetes mellitus in childbirth, unspecified control; Z20.822 Contact with and (suspected) exposure to COVID-19; O99.214 Obesity complicating childbirth; O99.824 Streptococcus B carrier state complicating childbirth; K21.9 Gastro-esophageal reflux disease without esophagitis; E66.01 Morbid (severe) obesity due to excess calories; Z79.84 Long term (current) use of oral hypoglycemic drugs; Z3A.38 38 weeks gestation of pregnancy; Z37.0 Single live birth
CPT/HCPCS: 36415; 82962; 85014; 85018; 85027; 86850; 86900; 86901; 99211; G0378; G0463; J0290; J0595; J0690; J1100; J1644; J1815; J1885; J2370; J2405; J2590; J2765; J3490; J7040; J7120; U0003

== ENCOUNTER 2021-11-08 10:55 | Outpatient (CLI) | payer MEDICAID ==
[2021-11-08 15:56] LABS: Amorphous Crystals,Urine 3+; Bacteria,Urine 2+ /HPF (Negative); Calcium Oxalate Crystals,Urine 1+; Hyaline Casts,Urine 7 /LPF; RBC,Urine < 1.0 /HPF (0.0-6.0)
[2021-11-08 16:07] LABS: Alanine Aminotransferase 10 units/L (7-56); Uric Acid 4.3 mg/dL (3.5-7.6)
[2021-11-08 16:08] LABS: Color,Urine Amber (Yellow)
[2021-11-08 16:51] VITALS: BP 121/62
[2021-11-08] MEDS ORDERED: LACTATED RINGERS 1,000 ML ONE (17:16)
[2021-11-08 17:38] LABS: Hematocrit 36.5 % (30.3-42.9); Hemoglobin 12.1 gm/dl (10.1-14.3); Mean Corpuscular HGB Conc 33 % (30-34); Mean Corpuscular Volume 88 fl (79-97); Platelet Count 289 K/mm3 (140-440); Red Blood Count 4.16 M/mm3 (3.65-5.03); Red Cell Distribution Width 14.4 % (13.2-15.2)
== END 2021-11-08 19:58 | disposition home or self-care (01) ==
LOC: TRG 10:55 → APU 10:56 → TRG 18:33
PROVIDERS: ATTEND Obstetrics & Gynecology
DX: Z34.93 Encounter for supervision of normal pregnancy, unspecified, third trimester (principal); Z3A.36 36 weeks gestation of pregnancy
CPT/HCPCS: 36415; 81001; 82565; 83615; 84450; 84460; 84550; 85027

== ENCOUNTER 2021-11-23 05:31 | Inpatient (IN) | payer MEDICAID ==
[2021-11-23] MEDS ORDERED: LACTATED RINGERS 1,000 ML ONE ×3 (06:09→09:22)
--- NOTE | 2021-11-23 06:10 | Anesthesia Day of Surgery ---
Anesthesia Day of Surgery - Day of Surgery Patient Examined: Yes Patient H&P Reviewed: Yes Patient is NPO: Yes
--- NOTE | 2021-11-23 06:13 | Anesthesia Consultation ---
Anesthesia Consult and Med Hx Date of service: 11/23/21 - Airway Anesthetic Teeth Evaluation: Poor ROM Head & Neck: Adequate Mental/Hyoid Distance: Adequate Mallampati Class: Class III Intubation Access Assessment: Probably Good - Pulmonary Exam CTA: Yes - Cardiac Exam Cardiac Exam: RRR - Pre-Operative Health Status ASA Pre-Surgery Classification: ASA3 Proposed Anesthetic Plan: Epidural, Spinal - Pulmonary Hx Smoking: No Hx Asthma: No Hx Respiratory Symptoms: No SOB: No COPD: No Hx Pneumonia: No Hx Sleep Apnea: No - Cardiovascular System Hx Hypertension: No Hx Coronary Artery Disease: No Hx Heart Attack/AMI: No Hx Angina: No Hx Percutaneous Transluminal Coronary Angioplasty (PTCA): No Hx Cardia Arrhythmia: No Hx Pacemaker: No Hx Internal Defibrillator: No Hx Valvular Heart Disease: No Hx Heart Murmur: No Hx Peripheral Vascular Disease: No - Central Nervous System Hx Neuromuscular Disorder: No Hx Seizures: No CVA: No Hx Back Pain: No Hx Psychiatric Problems: No - Gastrointestinal Hx Ulcer: No Hx Gastroesophageal Reflux Disease: Yes - Endocrine Hx Renal Disease: No Hx End Stage Renal Disease: No Hx Cirrhosis: No Hx Liver Disease: No Hx Insulin Dependent Diabetes: No Hx Non-Insulin Dependent Diabetes: Yes Hx Thyroid Disease: No Hx Hypothyroidism: No Hx Hyperthyroidism: No - Hematic Hx Anemia: No Hx Sickle Cell Disease: No - Other Systems Hx Alcohol Use: No Hx Substance Use: No Hx Cancer: No Hx Obesity: Yes
[2021-11-23] MEDS ORDERED: BUPIVACAINE/PF (0.5%) 5 MG/1 ML 30 ML VIAL INFILTRATI ONE (06:59)
[2021-11-23] MEDS ORDERED: ONDANSETRON 4 MG/2 ML INJ ONE ×2 (06:59)
[2021-11-23] MEDS ORDERED: OXYTOCIN DRIP 30 UNITS/500 ML BAG IV SCH ×2 (07:00→13:00)
[2021-11-23] MEDS ORDERED: FAMOTIDINE 20 MG/2 ML INJ IV SCH (07:00)
[2021-11-23] MEDS ORDERED: LACTATED RINGERS 1,000 ML IV SCH ×2 (07:00→13:00)
[2021-11-23] MEDS ORDERED: BICITRA ORAL LIQD 30ML PO SCH (07:00)
[2021-11-23] MEDS ORDERED: METOCLOPRAMIDE 10 MG/2 ML INJ IV SCH (07:00)
[2021-11-23 07:04] LABS: Hematocrit 37.9 % (30.3-42.9); Hemoglobin 12.3 gm/dl (10.1-14.3); Mean Corpuscular HGB Conc 33 % (30-34); Mean Corpuscular Volume 87 fl (79-97); Platelet Count 288 K/mm3 (140-440); Red Blood Count 4.35 M/mm3 (3.65-5.03); Red Cell Distribution Width 14.2 % (13.2-15.2)
[2021-11-23] MEDS ORDERED: BICITRA ORAL LIQD 30ML ONE (07:05)
[2021-11-23] MEDS ORDERED: METOCLOPRAMIDE 10 MG/2 ML INJ ONE (07:05)
[2021-11-23] MEDS ORDERED: miSOPROStol 200 MCG TAB ONE (07:06)
[2021-11-23] MEDS ORDERED: METHYLERGONOVINE MALEATE 0.2 MG/ML VIAL IM ONE ×2 (07:06→07:11)
[2021-11-23] MEDS ORDERED: FAMOTIDINE 20 MG/2 ML INJ IV ONE (07:06)
--- NOTE | 2021-11-23 07:09 | History and Physical Report ---
History of Present Illness Date of examination: 11/23/21 Date of admission: 11/23/21 05:31 Chief complaint: scheduled section History of present illness: Pt is a 31 year old -[place] VJ 11/30/21 at 39w0d who presents for scheduled secondary to previous x 1 and gestational diabetes, diet controlled. She reports irregular contractions, denies vaginal bleeding, or leakage of fluid. 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 She is GBS negative. Past History Past Medical History: other (obesity ) Past Surgical History: other (eye surgery, hernia surgery ) Family/Genetic History: none Social history: no significant social history - Obstetrical History Expected Date of Delivery: 11/30/21 Actual Gestation: 39 Week(s) 0 Day(s) : 1 Medications and Allergies Allergies Allergy/AdvReac Type Severity Reaction Status Date / Time No Known Allergies Allergy Verified 07/11/20 16:54 Home Medications Medication Instructions Recorded Confirmed Last Taken Type Vitamin 2 tab PO DAILY 07/11/20 07/11/20 07/11/20 History Ibuprofen [Motrin] 800 mg PO Q8HR PRN #60 tablet 07/14/20 Unknown Rx oxyCODONE /ACETAMINOPHEN [Percocet 1 tab PO Q6HR PRN #30 tablet 07/14/20 Unknown Rx 5/325] Active Meds: Active Medications Citric Acid/Sodium Citrate (Bicitra Oral Liqd 30ml) 30 ml PO ONCE ONE Stop: 11/23/21 06:59 Famotidine (Famotidine 20 Mg/2 Ml Inj) 20 mg IV ONCE ONE Stop: 11/23/21 06:59 Lactated Ringer's (Lactated Ringers) 1,000 mls @ 2,250 mls/hr IV PREOP CHRISTIANO Stop: 11/24/21 07:27 Oxytocin/Sodium Chloride (Pitocin/Ns 30 Unit/500ml) 30 units in 500 mls @ 0 mls/hr IV TITR CHRISTIANO; Protocol Cefazolin Sodium 3 gm/ Sodium (Chloride) 100 mls @ 100 mls/30 min IV PREOP NR; Protocol Metoclopramide HCl (Metoclopramide 10 Mg/2 Ml Inj) 10 mg IV ONCE ONE Stop: 11/23/21 06:59 Review of Systems All systems: negative - Physical Exam Breasts: Positive: deferred Abdomen: Positive: soft (obese) Uterus: Positive: enlarged (obese ) - Obstetrical FHR: auscultation normal Uterine Contraction Pattern: Absent Results Result Diagrams: 11/23/21 06:43 All other labs normal. Assessment and Plan A: IUP at 39w0d Previous x 1 Morbid Obesity Gestational Diabetes GBS Negative P: Admit to labor and delivery Proceed with repeat section and other indicated procedures
[2021-11-23] MEDS ORDERED: SODIUM CHLORIDE 0.9% 250ML 250 ML ONE (07:10)
[2021-11-23] MEDS ORDERED: CARBOPROST TROMETHAMINE 250 MCG/1 ML INJ IM ONE (07:11)
[2021-11-23] MEDS ORDERED: SODIUM CHLORIDE 0.9% 500 ML 500 ML ONE (07:20)
[2021-11-23] MEDS ORDERED: PHENYLEPHRINE 10 MG/1 ML INJ SDV ONE (07:20)
[2021-11-23] MEDS ORDERED: miSOPROStol 200 MCG TAB PR PRN (07:30)
[2021-11-23] MEDS ORDERED: SODIUM CHLORIDE 0.9% IRR 1,500 ML BOTTLE IR ONE (09:00)
[2021-11-23] MEDS ORDERED: ceFAZolin/STERILE WATER 2 GM/20 ML SYRINGE IV ONE (09:00)
[2021-11-23] MEDS ORDERED: WATER FOR IRRIG STERILE 1,500 ML BOTTLE IR ONE (09:00)
[2021-11-23] MEDS ORDERED: SODIUM CHLORIDE 0.9% 100 ML ONE (09:25)
[2021-11-23] MEDS ORDERED: dexAMETHasone 20 MG/5 ML VIAL ONE (09:26)
[2021-11-23] MEDS ORDERED: TRANEXAMIC ACID 1,000 MG/10 ML ONE (09:36)
[2021-11-23] MEDS ORDERED: KETOROLAC 30 MG/1 ML INJ ONE (10:34)
--- NOTE | 2021-11-23 10:59 | Progress Note ---
Spinal Anesthesia Block - Spinal Anesthesia Block Start Time: 08:04 Stop Time: 08:19 Performed by:: JESUS PAGAN Procedure: Patient is requesting epidural for labor pain. H&P and labs reviewed. Procedure explained, questions answered, consent obtained. Patient placed in sitting position with monitors applied. Timeout performed immediately before start of procedure. Prep/drape in usual sterile fashion. Skin localized 3 mL 1% lidocaine at L[2]-L[3] interspace. 17-gauge Tuohy epidural needle advanced to BELKIS with saline at [8] cm. No blood/CSF noted via epidural needle. 25g spinal needle advanced into intrathecal space until clear, free flowing CSF noted. 1.6mL 0.75% hyperbaric bupivacaine + 0.5mL Precedx sterile saline injected into intrathecal space. Spinal needle removed and epidural catheter advanced to [12] cm. Negative aspiration for blood and CSF via catheter, Sterile dressing applied followed by tape reinforcement. Patient tolerated procedure well. No immediate complications noted.
--- NOTE | 2021-11-23 11:20 | Progress Note ---
Regional Anesthesia Block - Regional Anesthesia Block Start Time: 11:01 Stop Time: 11:12 Performed By:: JESUS PAGAN Procedure: Patient consented for TAP block for post surgical pain management. Patient identified, monitors placed, and time out performed. TAP identified bilaterally via ultrasound. Skin prepped bilaterally with [chlorhexidine] and [22g stimuplex] needle advanced to the TAP. [Marcaine 0.22% 35ml] injected under ultrasound guidance on the [left] side. [Marcaine 0.22% 35ml] injected under ultrasound guidance on the [right] side. Negative aspiration every 5mL, No change in heart rate or rhythm. Patient tolerated the procedure well. No apparent complications seen.
--- NOTE | 2021-11-23 12:27 | Procedure Note ---
OB Delivery Note - Delivery Date of Delivery: 11/23/21 Surgeon: BEREKET TORRES Estimated blood loss: other (QBL 880 mL) - Section Preop diagnosis: repeat Postop diagnosis: same section procedure: section, repeat low transverse Disposition: PACU Complications: none Narrative: Please see operative report - A at 1 minute: 8 at 5 minutes: 9 Gender: Female (3770g (8lb 5oz) @ 0930 am)
--- NOTE | 2021-11-23 12:32 | Operative Report ---
Operative Report Operative Report: Date of procedure: November 23, 2021 Preoperative diagnosis: 1)IUP at 39w0d 2) Previous x 1 3) Morbid Obesity BMI 71 4) Gestational Diabetes Postoperative diagnosis: Same Procedure: Repeat low transverse section Surgeon: Rosina Andrade M.D. Anesthesia: Regional Findings: 1) Viable female , Apgars 8 and 9, weight 3770 g, (8 lb 5 oz) in cephalic presentation. 2) Normal-appearing uterus ovaries and tubes Estimated blood loss: 880 mL IV fluids:2500 mL Urine output: 250 mL, clear at the end of the procedure Drains: Turner to gravity Specimens: None Complications:None. Counts correct x 3 Disposition: Stable to PACU Indication for procedure: Pt is a 31 year old at 39w0d with a h/o one prior section and gestational diabetes who presents for repeat section. Operation in detail: After the risks, benefits, alternatives and complications were explained to the patient she gave informed consent for the procedure. She was subsequently taken to the operating room where regional anesthesia was noted to be adequate. She was placed in the dorsal supine position with leftward tilt and prepped and draped in a normal sterile fashion. heart tones were noted prior to incision. A timeout was performed. A Pfannenstiel skin incision was made with the knife and carried down to the layer of the fascia with the Bovie. The fascia was incised in the midline and the fascial incision was extended bilaterally with the Bovie. The fascial incision was then stretched. The rectus muscles were then in the midline and partially transected for adequate visualization. The peritoneum was then entered bluntly. The peritoneal incision was extended with good visualization of the bladder. The peritoneal incision was then stretched. An Abimael retractor was placed. The bladder blade was then placed. The vesicouterine peritoneum was grasped with smooth pick ups and incised with Metzenbaum scissors. A bladder flap was then created digitally and the bladder blade was replaced. A transverse incision was made in the lower uterine segment with a knife and extended bilaterally with the bandage scissors. Amniotomy was performed with egress of clear fluid. head delivered with ease, followed by shoulders and body. bulb suctioned at delivery. Cord clamped and cut. handed to NICU staff in attendance. Cord blood was collected. The placenta was then delivered manually. The uterus was then cleared of all clots and debris. The hysterotomy was then reapproximated with 0 Monocryl in a running locked fashion. A second layer of the same suture was used in imbricating fashion. The hysterotomy was inspected and hemostasis was noted. The gutters were irrigated and cleared of all clots and debris. The hysterotomy was again inspected and noted to be hemostatic. Surgicel was placed over the hysterotomy. The Abimael retractor was removed. The peritoneum was reapproximated with 0 Monocryl in a running fashion incorporating the rectus muscles. Surgicel was placed over the rectus muscles. The fascia was reapproximated with 0 Vicryl in a running fashion. The subcutaneous tissue was reapproximated in two layers with 0 Vicryl in a running fashion. The skin was reapproximated with 3-0 Monocryl in a subcuticular fashion. The incision was then covered with steri strips and a pressure dressing. The procedure was then ended. The patient tolerated the procedure well and was taken to the PACU in stable condition. All instrument, lap, and needle counts were correct 3.
[2021-11-23] MEDS ORDERED: NALOXONE 0.4 MG/1 ML INJ IV PRN (13:00)
[2021-11-23] MEDS ORDERED: HYDROmorphone 0.5 MG/0.5 ML INJ IV PRN ×2 (13:00)
[2021-11-23] MEDS ORDERED: SIMETHICONE 80 MG CHEW TAB PO PRN (13:00)
[2021-11-23] MEDS ORDERED: ACETAMINOPHEN 325 MG TAB PO PRN (13:00)
[2021-11-23] MEDS ORDERED: WITCH HAZEL/ GLYCERIN PAD TP PRN (13:00)
[2021-11-23] MEDS ORDERED: LANOLIN/ZINC/DIMETHICONE (LANSINOH) 7 GM TP PRN (13:00)
[2021-11-23] MEDS: KETOROLAC 30 MG/1 ML INJ IV SCH ×2 (13:17→20:29)
[2021-11-23] MEDS ORDERED: ONDANSETRON 4 MG/2 ML INJ IV PRN (13:30)
[2021-11-23] MEDS: ceFAZolin/NS 1 GM/50 ML 1 GM/50 ML BAG IV SCH (16:34)
[2021-11-23] MEDS: oxyCODONE /ACETAMINOPHEN 5-325MG TAB PO PRN (17:12)
[2021-11-24 01:04] LABS: Hematocrit 36.6 % (30.3-42.9); Hemoglobin 11.7 gm/dl (10.1-14.3)
[2021-11-24] MEDS: oxyCODONE /ACETAMINOPHEN 5-325MG TAB PO PRN ×4 (02:26→18:39)
[2021-11-24] MEDS: ceFAZolin/NS 1 GM/50 ML 1 GM/50 ML BAG IV SCH (02:26)
[2021-11-24] MEDS ORDERED: PRENATAL VIT27-FE FUMARATE-FOLIC ACID VIT TAB PO SCH (10:00)
[2021-11-24] MEDS ORDERED: MEASLES, MUMPS & RUBELLA 12,500 UNIT/0.5 ML VACCINE SUB-Q ONE (10:00)
[2021-11-24] MEDS ORDERED: TETANUS,DIPH,PERTUSS(ACELL) VACCINE 0.5 ML SYRINGE IM ONE (13:00)
[2021-11-24] MEDS ORDERED: diphenhydrAMINE 25 MG CAP PO PRN (13:44)
--- NOTE | 2021-11-24 14:27 | Post Anesthesia Evaluation ---
- Post Anesthesia Evaluation Patient Participated: Yes Airway Patent: Yes Stable Respiratory Function: Yes Nausea/Vomiting: No Temp > 96.8F: Yes Pain Manageable: Yes Adequeate Hydration: Yes Anesthesia Complications: No Block Receding Appropriately: Yes Patient on Ventilator: No
--- NOTE | 2021-11-24 14:34 | Progress Note ---
Assessment and Plan A: POD#1 s/p Repeat section at term Morbid Obesity P: Routine postoperative care Subjective - Subjective Date of service: 11/24/21 Principal diagnosis: POD#1 s/p repeat at term, morbid obesity Interval history: Pt without complaints. + flatus. Decreasing lochia. Tolerating regular diet. Patient reports: appetite normal, voiding normally, pain well controlled, flatus, ambulating normally, no bowel movement : doing well Objective - Vital Signs Latest vital signs: Vital Signs Temp Pulse Resp BP BP Pulse Ox Pulse Ox 11/24/21 08:40 92 11/24/21 04:00 98.4 F 74 16 119/72 11/23/21 23:25 92 11/23/21 20:10 98.5 F 70 18 128/71 92 11/23/21 19:30 98 11/23/21 15:50 97.8 F 74 18 136/86 89 Intake and Output 11/23/21 11/24/21 11/24/21 22:59 06:59 14:59 Intake Total 810 400 Output Total 1400 600 Balance -590 -200 Intake: IV 50 ANCEF/NS 1 GM/50 ML 1 gm 50 In 50 ml @ 100 mls/hr IV Q8H [facility] Rx#:[id number] Oral 360 400 Intake, Free Water 400 Output: Urine 1400 600 Indwelling Catheter 800 Uretheral (Turner) 200 Void 400 600 Other: Total, Intake Amount 360 200 Total, Output Amount 300 600 # Voids Void 1 - Exam Breasts: Present: deferred Abdomen: Present: soft (obese ) Extremities: Present: edema (trace ) Incision: Present: dressed
[2021-11-25] MEDS: IBUPROFEN 800 MG TAB PO PRN ×2 (01:21→09:22)
[2021-11-25 09:25] VITALS: BP 143/80
--- NOTE | 2021-11-25 10:13 | Progress Note ---
Assessment and Plan A: POD#2 s/p Repeat section at term Morbid Obesity P: Routine postoperative care Discharge today Subjective - Subjective Date of service: 11/25/21 Principal diagnosis: POD#2 s/p repeat at term, morbid obesity Interval history: Pt without complaints. Plus flatus and bowel movement this morning. Patient desires to go home if possible Patient reports: appetite normal, voiding normally, pain well controlled, flatus, bowel movement, ambulating normally [place]: doing well Objective - Vital Signs Latest vital signs: Vital Signs Temp Pulse Resp BP BP Pulse Ox Pulse Ox 11/25/21 08:10 98.1 F 102 H 18 143/80 95 11/25/21 02:21 18 11/25/21 01:25 98.5 F 92 H 20 144/85 98 11/25/21 01:21 20 11/24/21 20:00 100 11/24/21 19:39 18 11/24/21 18:39 18 11/24/21 15:47 97.4 F L 70 18 123/67 98 11/24/21 10:21 97.8 F 71 20 114/85 99 Intake and Output 11/24/21 11/25/21 11/25/21 22:59 06:59 14:59 Intake Total 480 120 Balance 480 120 Intake: Oral 120 120 Intake, Free Water 360 Other: Total, Intake Amount 120 120 # Voids Indwelling Catheter 3 Void 1 - Exam Breasts: Present: deferred Abdomen: Present: soft (obese) Uterus: Present: fundal height below umbilicus Extremities: Present: edema (1+) Incision: Present: intact (with steristrip)
--- NOTE | 2021-11-25 10:15 | Discharge Summary ---
Providers - Providers Date of Admission: 11/23/21 05:31 Date of discharge: 11/25/21 Attending physician: HARRIS FAJARDO 11/23/21 12:53 Consult to Civil Service Worker [CONS] Routine Reason For Exam: Primary care physician: HARRIS FAJARDO Hospitalization Reason for admission: section Delivery: Procedure: section, repeat low transverse Procedure details: Please see operative report Incision: intact complications: none Discharge diagnosis: IUP at term delivered [place] baby: female Hospital course: Patient presented for scheduled section and underwent repeat section which he tolerated well. That her postoperative course was uncomplicated and she met discharge criteria on postoperative #2. She will follow-up in the office in [address] Andrade for an incision check Condition at discharge: Stable Disposition: 01 HOME / SELF CARE / HOMELESS - Discharge Diagnoses (1) Morbid obesity with BMI of 70 and over, adult Status: Acute (2) S/P section Status: Acute (3) Term of female Status: Acute (4) Gestational diabetes Status: Acute Qualifiers: Gestational diabetes mellitus control: diet-controlled Trimester: third trimester Qualified Code(s): O24.410 - Gestational diabetes mellitus in , diet controlled Plan - Discharge Medications Prescriptions: Ibuprofen [Motrin] 800 mg PO Q8HR PRN #30 tablet PRN Reason: Pain, Moderate (4-6) oxyCODONE /ACETAMINOPHEN [Percocet 5/325] 1 tab PO Q6HR PRN #30 tablet PRN Reason: Pain - Provider Discharge Summary Activity: routine, no sex for 6 weeks, no heavy lifting 4 weeks, no strenuous exercise Diet: routine Instructions: routine Additional instructions: [] Smoking cessation referral if applicable(refer to patient education folder for contact #) [] Refer to [facility] Booklet Call your doctor immediately for: * Fever > 100.5 * Heavy vaginal bleeding ( >1 pad per hour) * Severe persistent headache * Shortness of breath * Reddened, hot, painful area to leg or breast * Drainage or odor from incision. * Keep incision clean and dry at all times and follow doctor's instructions regarding bathing/showering - Follow up plan Follow up: BEREKET ANDRADE MD [Staff Physician] - 14 Days (Please follow-up at previously scheduled appointment for incision check)
== END 2021-11-25 15:05 | disposition home or self-care (01) | DRG 766 ==
LOC: APU 05:31 → OB 12:43
PROVIDERS: ADMIT Obstetrics & Gynecology; ATTEND Obstetrics & Gynecology
PROC: 10D00Z1 Extraction of Products of Conception, Low, Open Approach (ICD-10-PCS; principal; 2021-11-23)
PROC: 3E0T3BZ Introduction of Anesthetic Agent into Peripheral Nerves and Plexi, Percutaneous Approach (ICD-10-PCS; 2021-11-23)
PROC: 3E0234Z Introduction of Serum, Toxoid and Vaccine into Muscle, Percutaneous Approach (ICD-10-PCS; 2021-11-24)
DX: O24.429 Gestational diabetes mellitus in childbirth, unspecified control (principal); O34.211 Maternal care for low transverse scar from previous cesarean delivery; Z37.0 Single live birth; Z20.822 Contact with and (suspected) exposure to COVID-19; Z3A.39 39 weeks gestation of pregnancy; Z23 Encounter for immunization; O99.62 Diseases of the digestive system complicating childbirth; O99.214 Obesity complicating childbirth; E66.01 Morbid (severe) obesity due to excess calories
CPT/HCPCS: 36415; 85014; 85018; 85027; 86592; 86850; 86900; 86901; G0378; J3490; J7121; J0690; J1100; J1170; J1885; J2370; J2405; J2765; J7040; J7120; U0003